=== PATIENT | female | born 1995 | race Caucasian/White ===

== ENCOUNTER 2022-02-24 09:09 | Emergency (ER) | payer OTHER ==
[~2022-02-24] VITALS: Ht 160 cm; Wt 80.0 kg
[2022-02-24 09:24] VITALS: TEMP 98.6
[2022-02-24 10:57] LABS: STREP SCREEN NEGATIVE
[2022-02-24 11:30] VITALS: BP 102/67; PULSE 91
== END 2022-02-24 11:30 | disposition home or self-care (01) ==
LOC: COL.ER 09:09
PROVIDERS: Family Medicine
DX: J02.9 Acute pharyngitis, unspecified (principal); Z20.822 Contact with and (suspected) exposure to COVID-19

== ENCOUNTER 2022-06-09 19:28 | Emergency (ER) | payer OTHER ==
[~2022-06-09] VITALS: Ht 160 cm; Wt 80.9 kg
[2022-06-09 19:34] VITALS: TEMP 98.2
[2022-06-09] MEDS ORDERED: ATARAX 25MG25 MG/TAB PO (19:38)
[2022-06-09 20:11] LABS: BASO # 0.1 K/mm3 (0.0-0.2); BASO % 0.9 % (0.0-2.0); EOS # 0.3 K/mm3 (0.0-0.7); EOS % 4.1 % (0.0-4.0); GRAN # 3.7 K/mm3 (1.4-6.5); GRAN % 57.8 % (42.2-75.2); HEMATOCRIT 40.2 % (37.0-47.0); HEMOGLOBIN 14.7 g/dl (12.5-16.0); MEAN CELL VOLUME 90 fl (80.0-100.0); MEAN CORPUSCULAR HEMOGLOBIN 33 pg (27-31); MEAN CORPUSCULAR HGB CONC 37 g/dl (33.0-37.0); MEAN PLATELET VOLUME 9.8 fl (7.4-10.4); MONO # 0.4 K/mm3 (0.1-0.6); PLATELET COUNT 273 K/mm3 (130-400); RED BLOOD COUNT 4.48 M/mm3 (4.10-5.30)
[2022-06-09 20:31] LABS: ALBUMIN 3.9 gm/dL (3.5-5.0); BILIRUBIN,TOTAL 0.6 mg/dL (0.2-1.2); C-REACTIVE PROTEIN 0.33 mg/dL (0.00-0.50); CALCIUM 8.8 mg/dL (8.4-10.2); CREATININE, serum 0.72 mg/dL (0.57-1.11); POTASSIUM 3.5 mmol/L (3.5-4.5); TOTAL PROTEIN 6.6 gm/dL (6.2-8.1)
[2022-06-09 20:37] LABS: TROPONIN-I 0.01 ng/mL (0.00-0.033)
[2022-06-09 22:39] VITALS: BP 107/68; PULSE 86
== END 2022-06-09 22:40 | disposition home or self-care (01) ==
LOC: COL.ER 19:28
PROVIDERS: Emergency Medicine
DX: R55 Syncope and collapse (principal); F17.290 Nicotine dependence, other tobacco product, uncomplicated; Z20.822 Contact with and (suspected) exposure to COVID-19
CPT/HCPCS: J7030

== ENCOUNTER 2023-11-25 08:58 | Emergency (ER) | payer OTHER ==
[~2023-11-25] VITALS: Ht 160 cm; Wt 84.1 kg
[~2023-11-25 08:58] MED LIST: ATARAX 25MG25 MG/TAB PO; CEFTIN 250250 MG/TAB PO; LIBRIUM 25M25 MG/CAP PO; MACROBID 1100 MG/CAP PO; PRIL40 PO
[2023-11-25 09:16] VITALS: TEMP 98.2
[2023-11-25] MEDS ORDERED: Ondansetron 4 MG/2 ML VIAL IV ONE (10:15)
[2023-11-25] MEDS ORDERED: NS 1,000 ML IV ONE ×2 (10:15→13:15)
[2023-11-25 10:55] LABS: BASO # 0.1 K/mm3 (0.0-0.2); BASO % 1.2 % (0.0-2.0); EOS # 0.1 K/mm3 (0.0-0.7); EOS % 2.1 % (0.0-4.0); GRAN # 2.2 K/mm3 (1.4-6.5); GRAN % 52.6 % (42.2-75.2); HEMATOCRIT 49.5 % (37.0-47.0); HEMOGLOBIN 17.6 g/dl (12.5-16.0); LYMPH # 1.5 K/mm3 (1.2-3.4); LYMPH % 35.5 % (20.0-51.0); MEAN CELL VOLUME 100 fl (80.0-100.0); MEAN CORPUSCULAR HEMOGLOBIN 36 pg (27-31); MEAN CORPUSCULAR HGB CONC 36 g/dl (33.0-37.0); MONO # 0.4 K/mm3 (0.1-0.6); MONO % 8.6 % (1.7-9.3); PLATELET COUNT 270 K/mm3 (130-400); RED BLOOD COUNT 4.96 M/mm3 (4.10-5.30); REDCELL DISTRIBUTION WIDTH-CV 14.5 % (11.5-14.5)
[2023-11-25 10:56] LABS: COLLECTION METHOD CLEAN CATCH
[2023-11-25 11:00] LABS: URINE APPEARANCE CLEAR (CLEAR/HAZY); URINE BLOOD NEGATIVE (NEGATIVE); URINE COLOR Dark Yellow (YELLOW); URINE GLUCOSE NEGATIVE (NEGATIVE); URINE KETONE NEGATIVE (NEGATIVE); URINE NITRATE NEGATIVE (NEGATIVE); URINE PROTEIN(semi-quant) NEGATIVE (NEGATIVE)
[2023-11-25 11:21] LABS: ALBUMIN 4.1 gm/dL (3.5-5.0); BILIRUBIN,TOTAL 1.8 mg/dL (0.2-1.2); CALCIUM 9.6 mg/dL (8.4-10.2); CREATININE, serum 0.8 mg/dL (0.57-1.11); POTASSIUM 4.3 mmol/L (3.5-4.5)
[2023-11-25] MEDS ORDERED: droPERidol 2.5 MG/ML 2 ML VIAL IV ONE (11:30)
[2023-11-25] MEDS ORDERED: ZOFRAN 4MG T4 MG/TAB PO (12:37)
[2023-11-25 13:09] VITALS: BP 104/84
[2023-11-25 13:46] VITALS: PULSE 90
== END 2023-11-25 13:46 | disposition home or self-care (01) ==
LOC: COL.ER 08:58
PROVIDERS: Physician Assistant
DX: R11.2 Nausea with vomiting, unspecified (principal); E86.0 Dehydration; Z20.822 Contact with and (suspected) exposure to COVID-19
CPT/HCPCS: J1790; J2405; J7030

== ENCOUNTER 2024-03-17 19:59 | Inpatient (IN) | payer BC ==
[~2024-03-17] VITALS: Ht 160 cm; Wt 84.3 kg
[~2024-03-17 19:59] MED LIST changes: +ZOFRAN 4MG T4 MG/TAB PO
[2024-03-17] MEDS ORDERED: LORazepam 2 MG/ML 1 ML VIAL IV ONE ×2 (20:45→22:00)
[2024-03-17] MEDS ORDERED: Folic Acid 1 MG,Thiamine 200 MG in NS 1,000 ML IV ONE (20:45)
[2024-03-17] MEDS ORDERED: Ondansetron 4 MG/2 ML VIAL IV ONE (21:00)
[2024-03-17 21:06] LABS: COLLECTION METHOD CLEAN CATCH
[2024-03-17 21:09] LABS: HEMATOCRIT 44.6 % (37.0-47.0); HEMOGLOBIN 16.2 g/dl (12.5-16.0); MEAN CELL VOLUME 97 fl (80.0-100.0); MEAN CORPUSCULAR HEMOGLOBIN 35 pg (27-31); MEAN CORPUSCULAR HGB CONC 36 g/dl (33.0-37.0); MEAN PLATELET VOLUME 9.4 fl (7.4-10.4); PLATELET COUNT 240 K/mm3 (130-400); RED BLOOD COUNT 4.62 M/mm3 (4.10-5.30); REDCELL DISTRIBUTION WIDTH-CV 12.2 % (11.5-14.5)
[2024-03-17 21:12] LABS: PH 6.5 (5.0-8.5); URINE APPEARANCE CLEAR (CLEAR/HAZY); URINE BLOOD NEGATIVE (NEGATIVE); URINE COLOR YELLOW (YELLOW); URINE GLUCOSE NEGATIVE (NEGATIVE); URINE KETONE NEGATIVE (NEGATIVE); URINE NITRATE NEGATIVE (NEGATIVE); URINE PROTEIN(semi-quant) NEGATIVE (NEGATIVE); URINE UROBILINOGEN 0.2 E.U/dL (0.2-1.0)
[2024-03-17 21:27] LABS: BAND 2 % (0-10); BASOPHIL 2 % (0-2); EOSINOPHIL 2 % (0-4); NEUTROPHILS 27 % (42.0-75.2); PLATELET ESTIMATE NORMAL (NORMAL)
[2024-03-17 21:28] LABS: LYMPHOCYTE 57 % (20.0-51.0)
[2024-03-17 21:30] LABS: TRICYCLIC ANTIDEPRESS URINE NEGATIVE (NEGATIVE)
[2024-03-17 21:40] LABS: ALBUMIN 3.7 g/dL (3.5-5.0); BILIRUBIN,TOTAL 1.8 mg/dL (0.2-1.2); C-REACTIVE PROTEIN 0.02 mg/dL (0.00-0.50); CALCIUM 9.8 mg/dL (8.4-10.2); CREATININE, serum 0.77 mg/dL (0.57-1.11); MAGNESIUM 1.6 mg/dL (1.6-2.6); POTASSIUM 3.4 mEq/L (3.5-4.5); TOTAL PROTEIN 7.2 g/dl (6.2-8.1)
[2024-03-17] MEDS ORDERED: ATARAX 25MG25 MG/TAB PO (23:14)
[2024-03-17] MEDS ORDERED: NS 1,000 ML IV SCH (23:30)
[2024-03-17] MEDS ORDERED: Mag/Al Hydrox/Simeth Susp 30 ML CUP PO PRN (23:30)
[2024-03-17] MEDS ORDERED: LORazepam 2 MG/ML 1 ML VIAL IM PRN (23:30)
[2024-03-17] MEDS ORDERED: Ondansetron 4 MG/2 ML VIAL IV PRN (23:30)
[2024-03-17] MEDS ORDERED: LORazepam 1 MG TAB PO PRN (23:30)
[2024-03-17] MEDS ORDERED: LORazepam 2 MG/ML 1 ML VIAL IV PRN (23:30)
[2024-03-17 23:38] LABS: INR 1.1 (0.8-3.0); PROTHROMBIN TIME 11.6 SECONDS (9.7-12.8)
[2024-03-17 23:40] LABS: PARTIAL THROMBOPLASTIN TIME 28.4 SECONDS (26.0-37.0)
[2024-03-18] VITALS (10 sets, daily range): BP systolic 97–108; BP diastolic 62–82; PULSE 53–108; TEMP 97.7–98.8
[2024-03-18] MEDS ORDERED: D5NS 1,000 ML IV SCH (02:45)
[2024-03-18] MEDS ORDERED: *Potassium Replacement Protocol MC SCH (03:00)
[2024-03-18] MEDS ORDERED: Potassium Chloride 100 ML IV SCH (03:00)
--- NOTE | 2024-03-18 03:36 | NUR ---
RECEIEVED REPORT FROM JOSÉ HASTINGS RN, PATIENT ARRIVED TO [facility] AROUND 0100. PATIENT AMBULATED TO BED FROM ER BED, ALL BELONGINGS WITH PATIENT AT TIME OF TRANSFER. BROTHER WITH PATIENT AT TIME OF TRANSFER. ORIENTED TO ROOM, NO ACUTE EVENTS.
[2024-03-18 06:21] LABS: BASO # 0.1 K/mm3 (0.0-0.2); BASO % 1.3 % (0.0-2.0); EOS # 0.1 K/mm3 (0.0-0.7); EOS % 1.5 % (0.0-4.0); GRAN # 1.7 K/mm3 (1.4-6.5); GRAN % 42.5 % (42.2-75.2); HEMATOCRIT 38.7 % (37.0-47.0); LYMPH # 1.7 K/mm3 (1.2-3.4); LYMPH % 44.5 % (20.0-51.0); MEAN CELL VOLUME 98 fl (80.0-100.0); MEAN CORPUSCULAR HEMOGLOBIN 35 pg (27-31); MEAN CORPUSCULAR HGB CONC 36 g/dl (33.0-37.0); MONO # 0.4 K/mm3 (0.1-0.6); MONO % 10.2 % (1.7-9.3); PLATELET COUNT 183 K/mm3 (130-400); RED BLOOD COUNT 3.94 M/mm3 (4.10-5.30); REDCELL DISTRIBUTION WIDTH-CV 12.4 % (11.5-14.5)
[2024-03-18 06:26] LABS: HEMOGLOBIN 13.9 g/dl (12.5-16.0)
[2024-03-18 06:36] LABS: ALBUMIN 3.1 g/dL (3.5-5.0); BILIRUBIN,TOTAL 1.8 mg/dL (0.2-1.2); CALCIUM 8.3 mg/dL (8.4-10.2); CREATININE, serum 0.82 mg/dL (0.57-1.11); POTASSIUM 3.7 mEq/L (3.5-4.5); TOTAL PROTEIN 5.7 g/dl (6.2-8.1)
--- NOTE | 2024-03-18 07:00 | NUR ---
REPORT RECEIVED FROM CAMERON STEEL. PT RESTING IN BED, VSS ON ROOM AIR. PT IS ALERT AND ANSWERS ORIENTATION QUESTIONS APPROPRIATELY BUT IS IMPULSIVE AND AMBULATES W/ UNSTEADY GAIT. SEIZURE PADS IN PLACE AND BED ALARM ON FOR PT SAFETY.
[2024-03-18] MEDS ORDERED: Multivitamin TAB PO SCH (08:00)
[2024-03-18] MEDS ORDERED: Pantoprazole 40 MG in NS 10 ML IV SCH ×2 (09:00→21:00)
[2024-03-18] MEDS ORDERED: Thiamine 100 MG TAB PO SCH (09:00)
[2024-03-18] MEDS ORDERED: Folic Acid 1 MG TAB PO SCH (09:00)
--- NOTE | 2024-03-18 10:10 | NUR ---
foundry worker apprentice met with patient to discuss discharge planning. Patient lives in [place] with her , Jose Elias P# [phone]. PCP is Dr. Shaye Gan, Pharmacy is [facility]. Insurance is [employer] ?. SW discussed DPOA-HC, patient stated she may be interested in completing one. SW asked patient to explain what DPOA-HC means in her own words. Patient stated "if something were to go very wrong, this person would make decisions for me." SW provided the blank DPOA-HC for patient to review and explained if she wanted to complete it to notify the social security benefits interviewer. Patient understood. SW explained without this being in place, her , Jose Elias would be her next of kin. Patient understands. No DME and patient reports to be independent with ADLS. Patient reports she does not like to drive, so her or brother transports her. SW discussed drug and alcohol resources since patient was admitted to the hospital for alcohol withdrawal. Patient reports she does not want to go to rehab, ever. SW discussed outpatient and counseling options. Patient stated she was seeing someone at [facility] for therapy but has not seen them in a month. SW provided the drug and alcohol resources in [place] and the surrounding area. SW discussed AA meetings, patient is open to attending these meetings. SW provided the list of meetings available in [place]. Patient would like to return home at time of discharge. SW notified patient's nurse of the above information. SW attempted to contact patient's , Jose Elias, no answer. SW will follow up. Discharge plan: Home
[2024-03-18] MEDS ORDERED: diazePAM 10 MG TAB PO SCH (10:15)
--- NOTE | 2024-03-18 12:26 | NUR ---
painting trades worker attempted to reach patient's , no answer. SW left voicemail.
[2024-03-18] MEDS ORDERED: oxyCODONE 5 MG TAB PO PRN (14:00)
[2024-03-18] MEDS ORDERED: FOLIC ACID 11 MG/TA1 PO (17:24)
[2024-03-18] MEDS ORDERED: MULTIPLE VITAMI1 CAP PO (17:24)
[2024-03-18] MEDS ORDERED: PROTONIX 40MG T40 MG PO (17:24)
[2024-03-18] MEDS ORDERED: THIAMINE 1100 MG/TAB PO (17:24)
--- NOTE | 2024-03-18 20:10 | NUR ---
PT NOTIFIED NURSE AT 1700 SHE WAS GOING TO LEAVE AMA. NURSE EXPLAINED RISKS OF LEAVING AGAINST MEDICAL ADVICE. PT'S BROTHER IN TO VISIT PT AT 1750 , SITTING ON BED W/ PT, PT COLLECTING BELONGINGS INTO BAGS. NURSE STEPPED OUT OF ROOM. AT 1800, THIS NURSE HEARD LOUD NOISE FROM PT ROOM. PT ON KNEES AT FOOT OF BED. NO INJURY TO PT, PT DID NOT HIT HEAD. ILEANA ROPER AND SALES PROMOTION DIRECTOR NOTIFIED AT 1805. PT BECAME INCREASINGLY CONUSED AND COMBATIVE AT THIS TIME, REPORTS SEEING AND HEARING PEOPLE IN ROOM WHO ARE NOT THERE.
[2024-03-19] VITALS (8 sets, daily range): BP systolic 103–132; BP diastolic 54–95; PULSE 44–76; TEMP 97.3–99.1
[2024-03-19 05:47] LABS: BASO % 0.8 % (0.0-2.0); EOS # 0.1 K/mm3 (0.0-0.7); GRAN % 38.9 % (42.2-75.2); HEMOGLOBIN 12.9 g/dl (12.5-16.0); LYMPH # 1.1 K/mm3 (1.2-3.4); LYMPH % 44.4 % (20.0-51.0); MEAN CELL VOLUME 98 fl (80.0-100.0); MEAN CORPUSCULAR HEMOGLOBIN 36 pg (27-31); MEAN CORPUSCULAR HGB CONC 37 g/dl (33.0-37.0); MEAN PLATELET VOLUME 9.7 fl (7.4-10.4); MONO # 0.3 K/mm3 (0.1-0.6); MONO % 11.9 % (1.7-9.3); PLATELET COUNT 146 K/mm3 (130-400); RED BLOOD COUNT 3.62 M/mm3 (4.10-5.30); REDCELL DISTRIBUTION WIDTH-CV 12.1 % (11.5-14.5)
[2024-03-19 05:52] LABS: HEMATOCRIT 35.3 % (37.0-47.0)
--- NOTE | 2024-03-19 06:49 | NUR ---
0645: PT HAD RESTLESS NIGHT AT TIMES. GIVING ATIVAN PUSHES AND THEY SEEMED TO AGITATE THE PT FURTHER EVEN WITH PRECEDEX AT 0.4. INCREASED PRECEDEX TO 0.5 AND THE PT WAS ABLE TO REST AND BE WOKEN UP WITHOUT MUCH AGITATION AND SLEPT MOST OF THE NIGHT. EASILY AROUSED, BUT STILL CONFUSED. VSS.
[2024-03-19] MEDS ORDERED: Magnesium Sulfate 4% 50 ML IV ONE (07:00)
[2024-03-19 08:11] LABS: ALANINE AMINOTRANSFERASE 99 U/L (0-55); ALBUMIN 3.2 g/dL (3.5-5.0); ALKALINE PHOSPHATASE 77 U/L (40-150); ANION GAP 10 mmol/L (7-16); AST,SGOT 151 U/L (5-34); BILIRUBIN,TOTAL 2.9 mg/dL (0.2-1.2); CALCIUM 7.8 mg/dL (8.4-10.2); CHLORIDE 112 mEq/L (98-107); CREATININE, serum 0.71 mg/dL (0.57-1.11); GLUCOSE 127 mg/dL (70-99); POTASSIUM 3.8 mEq/L (3.5-4.5); SODIUM 142 mEq/L (136-145); TOTAL PROTEIN 5.6 g/dl (6.2-8.1)
--- NOTE | 2024-03-19 08:13 | NUR ---
On 03/18/24, social media marketing analyst spoke with patient's , Jose Elias, via telephone. Jose Elias expressed his understanding of patient not wanting to go to rehab but reports she was not in therapy currently due to losing their insurance but she has been looking into options. MICHOACANO explained she provided resources for outpatient, inpatient and counseling. Jose Elias expressed that would be beneficial for this patient. SW discussed DPOA-HC, Jose Elias explained they had one through the ; however, he believed that after 5 years. MICHOACANO explained she left a blank copy of a DPOA-HC with the patient to review and he could discuss this with her. Jose Elias understood and explained it is something they both were looking at completing. Jose Elias has social media marketing analyst's work number to call if he has any additional questions or concerns.
[2024-03-19 08:18] LABS: BLOOD UREA NITROGEN < 5 mg/dL (7-19)
--- NOTE | 2024-03-19 08:30 | NUR ---
Patient intermittently anxious and restless in bed. Partially oriented; able to answer some orientation questions correctly. Will follow basic commands but sometimes needs prompting multiple times in order to accomplish a task. Assisted up to use the bathroom per patient request. Gait slightly unsteady but was able to make it to and from toilet with one assist. Will continue to score per CIWA protocol.
[2024-03-19] MEDS ORDERED: Potassium Bicarbonate/Citrate 20 MEQ Effervescent TAB PO ONE (08:45)
--- NOTE | 2024-03-19 08:48 | NUR ---
CPS report: Intake [id number]
[2024-03-19] MEDS ORDERED: Nicotine 21 MG DAILY PATCH TD SCH (09:00)
--- NOTE | 2024-03-19 10:12 | NUR ---
Initial visit; Patient states that she doesn't remember anything. Dry Cell Tester mentioned that if she relaxes and beging to feel better physically she will likely remember more easily. She thanked Dry Cell Tester and asked for her phone. Dry Cell Tester told her she would ask her nurse if she can get her phone for her. Dry Cell Tester wished patient well.
[2024-03-19] MEDS ORDERED: Magnesium Sulfate 2 GM/50 ML IV SOLN IV ONE (10:45)
[2024-03-19] MEDS ORDERED: LR 1,000 ML IV SCH (10:45)
--- NOTE | 2024-03-19 14:40 | NUR ---
Patient restless in bed; administered ativan per CIWA protocol. When patient was able to close eyes and rest HR intermittently dropping to the mid to low 40's. BP remained stable. Hospitalist notified. Can decrease precedex per protocol if tolerated.
--- NOTE | 2024-03-19 15:30 | NUR ---
Patient attempting to get out of bed; able to re-direct patient to rest in bed. Patient still occasionally talking and seeing people who are not present in the room. Patient will also attempt to converse with nurse and ask random non-sensical questions. Will administer ativan per [facility] protocol.
[2024-03-19] MEDS ORDERED: Magnesium Oxide 400 MG TAB PO SCH (21:00)
[2024-03-20] VITALS: BP 122/90; PULSE 74; TEMP 99.1
[2024-03-20 04:00] VITALS: BP 107/79; PULSE 52; TEMP 98.7
[2024-03-20 06:26] LABS: ANION GAP 10 mmol/L (7-16); CHLORIDE 106 mEq/L (98-107); CREATININE, serum 0.68 mg/dL (0.57-1.11); GLUCOSE 96 mg/dL (70-99); POTASSIUM 3.8 mEq/L (3.5-4.5); SODIUM 140 mEq/L (136-145)
[2024-03-20 06:41] LABS: BLOOD UREA NITROGEN < 5 mg/dL (7-19)
[2024-03-20 08:00] VITALS: BP 107/72; PULSE 74; TEMP 98.2
[2024-03-20 08:42] LABS: MAGNESIUM 1.8 mg/dL (1.6-2.6)
[2024-03-20] MEDS ORDERED: Potassium Bicarbonate/Citrate 20 MEQ Effervescent TAB PO ONE (10:45)
--- NOTE | 2024-03-20 11:44 | NUR ---
Data: Patient was awake. RN asked Fruit Grader Operator speak with Patient. Patient stated that she felt very "groggy." Patient spoke through her "groggyness" to share inicidents from her past that now cause her to have what she refers to as "night terrors." Assessment: Patient has anxiety related to both her past and to currently being in the hospital. Plan of Care: Fruit Grader Operator provided supportive listening and affirmation of Patient's stated feelings. Fruit Grader Operator provided a ministry of presence until Patient fell to sleep. Fruit Grader Operator will remain available to return to continue ministry of presence if/when RN calls.
[2024-03-20 11:56] VITALS: BP 104/73; PULSE 66; TEMP 98.1
--- NOTE | 2024-03-20 14:34 | NUR ---
Data: Follow-up visit per RN request. Patient initially thought that Strategic Sourcing Specialist was her substance abuse counselor. Once we determined "Strategic Sourcing Specialist" as opposed to "Counselor" Patient was able to speak to her spiritual needs/desires/concerns. Ended visit when texted reference his visit. Assessment: Patient is becoming coherent; able to speak without mumbling; able to hold her own attention. Patient is seeing "silky" images. Patient believes in God. She most keenly identifies with Janell Mccain Plan of Care: Strategic Sourcing Specialist provided therapeutic listening. Patient thanked Strategic Sourcing Specialist for visit. Chaplains will continue to be available as needed/requested while Patient is admitted to this hospital.
--- NOTE | 2024-03-20 14:44 | NUR ---
Data: Follow-up spiritual care visit offered. politely declined. He was eating his lunch and keeping stark in the recliner. One daugther was bedside. Assessment: Anticipitory grief with acceptance. Plan of Care: Chaplains will remain available as needed/requested while Patient is admitted to this hospital.
[2024-03-20 15:57] VITALS: PULSE 111; TEMP 98.2
[2024-03-20 20:01] VITALS: BP 102/70; PULSE 110; TEMP 98.4
[2024-03-20] MEDS ORDERED: Acetaminophen 325 MG TAB PO PRN (20:45)
[2024-03-21] VITALS: BP 110/72; PULSE 90; TEMP 98.1
[2024-03-21 04:05] VITALS: BP 104/64; PULSE 86; TEMP 98
[2024-03-21 08:00] VITALS: BP 118/87; PULSE 93; TEMP 98.6
[2024-03-21] MEDS ORDERED: Potassium Bicarbonate/Citrate 20 MEQ Effervescent TAB PO ONE (08:00)
--- NOTE | 2024-03-21 09:54 | NUR ---
PATIENT CIWA THIS AM 8, 1MG ATIVAN GIVEN. PT C/O NAUSEA, GAVE ZOFRAN 4MH VIA IVP, 30 MINS LATER PT HAS ONE EPISODE OF VOMITING, SMALL AMOUNT OF EMESIS THAT WAS SMITH IN COLOR AND CHUNKY. THIS EPISODE HAPPENED IMMEDIATELY AFTER EATING A FEW BITES OF OATMEAL. SHE IS CURRENTLY RESTING IN BED COMFORTABLY, NO FURTHER C/O N/v AT THIS TIME. WILL CONTINUE POC
[2024-03-21 12:00] VITALS: BP 98/66; PULSE 110; TEMP 98.2
--- NOTE | 2024-03-21 12:53 | NUR ---
PT STATES HER URINE HAS A FOUL ODOR AND BELIEVES SHE HAS A UTI. THE URINE IS PALE YELLOW, CLEAR, NON-ODOROUS OBSERVED BY THIS NURSE. WHEN ASKED IF SHE HAS ANY OTHER SYMPTOMS THAT ACCOMPANY A UTI, SHE COMPLAINS SHE IS "ITCHY DOWN THERE". PT HAS BEEN UNABLE TO SHOWER SINCE SHE HAS BEEN HERE 03/17/24, PT EDUCATED ON S/SX OF UTI, AND HYGIENE PRACTICES TO HELP CONTROL THE ITCHING AND ODOR. PT THEN STATES SHE HAS PAIN IN HER SPINE THAT RADIATES TO HER FLANKS BILATERALLY, 9/10 DESCRIBES PAIN "ONE OF THOSE SQUISHY BALLS BUT FILLED WITH RAZORS". OXYCODE 5MG GIVEN. PT ALSO REQUESTING LIBRIUM A TREATMENT OPTION FOR CONTIUATION OF ABSTAINING FROM ETOH WHEN SHE GOES HOME. DR. ESPARZA NOTIFIED OF THE ABOVE. NO UA ORDERED PT HAD UA ON THE THAT WAS CLEAR. SHE CAME INTO THE ED 03/17 WITH THE BACK PAIN AND BILATERAL FLANK PAIN, AND THIS IS NOT NEW PAIN FOR HER. DR. ESPARZA SAYS NO TO LIBRIUM.
[2024-03-21 16:00] VITALS: BP 110/79; PULSE 106; TEMP 98.4
--- NOTE | 2024-03-21 18:11 | NUR ---
PT C/O NAUSEA AND REQUESTS ZOFRAN. PT REQ TO FINISH EATING HER CHICKEN FINGERS FIRST SO SHE DOESN'T THROW UP THE ZOFRAN. EDUCATION PROVIDED ON IV ZOFRAN AND DIETARY ADVICE ON FOODS THAT WOULD MAKE NV WORSE. PT VERBALIZED UNDERSTANDING BUT NEEDS ADDITIONAL EDUCATION. CIWA SCORE OF 11 AT 1800, 1MG ATIVAN GIVEN
[2024-03-21 20:00] VITALS: BP 98/60; PULSE 99; TEMP 98.4
[2024-03-22] VITALS: BP 98/66; PULSE 83; TEMP 98.2
[2024-03-22 04:00] VITALS: BP 115/92; PULSE 96; TEMP 98.3
--- NOTE | 2024-03-22 05:41 | NUR ---
PT HAS HAD MOSTLY RESTFUL NIGHT, ANTICIPATING GOING HOME TODAY. HAS HAD NO EPISODES OF N/V, AMBULATING WELL TO TOILET IN ROOM WITH SBA. WAS MEDICATED X1 WITH ATIVAN 1 MG BASED ON CIWA SCORE AT 2230.
[2024-03-22 06:51] LABS: EOS # 0.2 K/mm3 (0.0-0.7); GRAN # 1.9 K/mm3 (1.4-6.5); GRAN % 46.7 % (42.2-75.2); HEMATOCRIT 37.4 % (37.0-47.0); LYMPH # 1.4 K/mm3 (1.2-3.4); LYMPH % 34.7 % (20.0-51.0); MEAN CELL VOLUME 100 fl (80.0-100.0); MEAN CORPUSCULAR HEMOGLOBIN 35 pg (27-31); MEAN CORPUSCULAR HGB CONC 35 g/dl (33.0-37.0); MEAN PLATELET VOLUME 10.5 fl (7.4-10.4); MONO # 0.5 K/mm3 (0.1-0.6); MONO % 13.3 % (1.7-9.3); PLATELET COUNT 154 K/mm3 (130-400); RED BLOOD COUNT 3.73 M/mm3 (4.10-5.30); REDCELL DISTRIBUTION WIDTH-CV 12.4 % (11.5-14.5)
--- NOTE | 2024-03-22 07:16 | NUR ---
Report received from CAMERON Lawson. Pt had uneventful night. Pt only given ativan x1 per Lulu. Labs reviewed. Call light within [facility]. Bed alarm activated. Will continue with POC.
[2024-03-22 07:27] LABS: ALANINE AMINOTRANSFERASE 53 U/L (0-55); ALBUMIN 3.2 g/dL (3.5-5.0); ALKALINE PHOSPHATASE 71 U/L (40-150); ANION GAP 8 mmol/L (7-16); AST,SGOT 51 U/L (5-34); BILIRUBIN,TOTAL 1.1 mg/dL (0.2-1.2); CALCIUM 8.3 mg/dL (8.4-10.2); CHLORIDE 107 mEq/L (98-107); CREATININE, serum 0.69 mg/dL (0.57-1.11); GLUCOSE 92 mg/dL (70-99); MAGNESIUM 1.8 mg/dL (1.6-2.6); POTASSIUM 3.4 mEq/L (3.5-4.5); SODIUM 141 mEq/L (136-145); TOTAL PROTEIN 5.8 g/dl (6.2-8.1)
[2024-03-22 07:31] LABS: BLOOD UREA NITROGEN < 5 mg/dL (7-19)
[2024-03-22] MEDS ORDERED: Potassium Bicarbonate/Citrate 20 MEQ Effervescent TAB PO SCH (07:45)
[2024-03-22 08:00] VITALS: BP 110/76; PULSE 82; TEMP 97.9
[2024-03-22] MEDS ORDERED: MAG-OX 400400 MG/TAB PO (09:29)
--- NOTE | 2024-03-22 09:33 | NUR ---
Follow-up visit; Patient doing well and is happy this morning stating that she may be going home soon. Agency Recruiter offered God's blessinfs for her healing. She thanked Agency Recruiter for visit.
[2024-03-22] MEDS ORDERED: ZOFRAN 4MG T4 MG/TAB PO (09:39)
[2024-03-22] MEDS ORDERED: ROXICODONE 55 MG/TAB PO (09:39)
--- NOTE | 2024-03-22 10:43 | NUR ---
Discharge instructions provided to patient. Pt states she has an appoinment with YARI khanna and one with her PCP on the . Advised her to keep these appoinments and to see if she can move her PCP appoinment up. Also, stressed the importance of abstaining from alcohol once she gets home. Education provided about additional resources avaliabe for her and encourged her to rethink rehab and AA. Pt stated she was not interested in either. Reviewed new medications and when they were last taken and pt verbalized understanding. INT discontinued and pt escourted out to waiting car. Reviewed discharge instructions with pt who also verbalized understanding.
== END 2024-03-22 10:15 | disposition home or self-care (01) | DRG 897 ==
LOC: COL.ER 19:59 → ICU 23:51
PROVIDERS: Nurse Practitioner; Nurse Practitioner Family; ADMIT Internal Medicine
DX: F10.131 Alcohol abuse with withdrawal delirium (principal); K50.90 Crohn's disease, unspecified, without complications; E87.29 Other acidosis; F41.9 Anxiety disorder, unspecified; Y90.6 Blood alcohol level of 120-199 mg/100 ml; M54.50 Low back pain, unspecified; E03.9 Hypothyroidism, unspecified; E87.6 Hypokalemia; R74.01 Elevation of levels of liver transaminase levels; K76.0 Fatty (change of) liver, not elsewhere classified; Z88.0 Allergy status to penicillin; Z88.8 Allergy status to other drugs, medicaments and biological substances; Z91.041 Radiographic dye allergy status; Z90.49 Acquired absence of other specified parts of digestive tract; Z90.89 Acquired absence of other organs; Z23 Encounter for immunization
CPT/HCPCS: C9113; J1650; J2060; J2405; J2470; J3411; J3475; J3480; J7030; J7042; J7120